=== PATIENT | female | born 1945 | race Caucasian/White ===

== ENCOUNTER → 2020-06-29 | Outpatient (CLI) | payer MEDICARE | LOC: KOH-I 10:12 | DX: M25.571 Pain in right ankle and joints of right foot (principal); M79.89 Other specified soft tissue disorders | CPT/HCPCS: 73610; 73630 ==

== ENCOUNTER → 2021-05-18 | Outpatient (CLI) | payer MEDICARE | LOC: KOH-I 08:40 | DX: R10.31 Right lower quadrant pain (principal); R10.2 Pelvic and perineal pain; N28.89 Other specified disorders of kidney and ureter | CPT/HCPCS: 76700; 76856 ==

== ENCOUNTER → 2021-06-13 | Outpatient (CLI) | payer MEDICARE | LOC: CT 09:37 | DX: N28.89 Other specified disorders of kidney and ureter (principal); N28.1 Cyst of kidney, acquired | CPT/HCPCS: 36415; 82565; Q9967 ==